=== PATIENT | female | born 2000 | race Caucasian/White ===

== ENCOUNTER → 2021-03-29 | Outpatient (CLI) | payer BC, OTHER ==
[2021-03-29 09:57] LABS: HEMOGLOBIN 12.9 gm/dl (12.3-15.3); RED BLOOD COUNT 4.28 M/UL (4.00-5.10); WHITE BLOOD COUNT 7.1 K/UL (4.5-11.0)
[2021-03-29 10:18] LABS: BUN/CREATININE RATIO 15 (0-10)
== END ==
LOC: ECHO 09:00 → CATH 10:00 → HEART 5 14:00
PROVIDERS: Internal Medicine Cardiovascular Disease
DX: R42 Dizziness and giddiness (principal); R00.2 Palpitations; R00.0 Tachycardia, unspecified; R94.31 Abnormal electrocardiogram [ECG] [EKG]
CPT/HCPCS: ECHO; 36415; 80053; 80061; 84439; 84443; 84481; 85025; 93306